=== PATIENT | male | born 2000 | race Caucasian/White ===

== ENCOUNTER 2022-10-08 15:00 | Emergency (ER) | payer BC, OTHER ==
--- NOTE | 2022-10-08 15:17 | ED ---
General Adult HPI <Mukund Harrell - Last Filed: 10/09/22 07:21> - General Source: patient, family Mode of arrival: ambulatory Limitations: no limitations - History of Present Illness MD Complaint: 4 -: days(s) <Antonella Morley - Last Filed: 10/11/22 10:13> - General Chief complaint: Neuro Symptoms/Deficit Stated complaint: Left leg numbness Time Seen by Provider: 10/08/22 17:00 - History of Present Illness Initial comments: Dictation was produced using [employer] dictation software. please excuse any grammatical, word or spelling errors. Medical screening exam: 21-year-old male presents emergency department for 4 day s of left lower extremity numbness. States is completely numb from his knee distally. Patient went and saw another medical provider just prior to here told him that he was having some hyperreflexia that he should come to the emergency department. Patient's well-appearing at the bedside. He does have a palpable dorsalis pedis and left posterior tibialis pulse. (Mukund Harrell) When I went to evaluate the patient, he provided the same information as above. He did additionally note that prior to the numbness below his knee, he had pain and numbness in the left thigh that has since resolved. He also notes some tingling in the toes on his right foot. (Antonella Morley) - Related Data Allergies Allergy/AdvReac Type Severity Reaction Status Date / Time Penicillins Allergy Rash/Hives Verified 10/08/22 15:21 Review of Systems ROS Other: All systems not noted in ROS Statement are negative. <Mukund Harrell - Last Filed: 10/09/22 07:21> ROS Other: All systems not noted in ROS Statement are negative. <Antonella Morley - Last Filed: 10/11/22 10:13> ROS Statement: Those systems with pertinent positive or pertinent negative responses have been documented in the HPI. General Exam General appearance: alert, in no apparent distress Head exam: Present: atraumatic, normocephalic, normal inspection Respiratory exam: Present: normal lung sounds bilaterally. Absent: respiratory distress, wheezes, rales, rhonchi, stridor Cardiovascular Exam: Present: regular rate, normal rhythm, normal heart sounds. Absent: systolic murmur, diastolic murmur, rubs, gallop, clicks Extremities exam: Present: other (2+ dorsalis pedis and tibialis posterior pulses bilaterally. Capillary refill less than 1 second bilaterally.) Neurological exam: Present: alert, oriented X3, CN II-XII intact, normal gait Expanded Sensory exam: Lower Extremity Light Touch: Abnormal Left, Lower Extremity Pin Prick: Normal, Lower Extremity Temperature: Abnormal Left (The left foot does feel colder on palpation than the right foot.) Motor strength exam: RLE: 5, LLE: 5 Psychiatric exam: Present: normal affect, normal mood Skin exam: Present: warm, dry, intact, normal color. Absent: rash <Antonella Morley - Last Filed: 10/11/22 10:13> Course Vital Signs 10/08/22 10/08/22 15:18 18:36 Temperature 97 F L 97.1 F L Pulse Rate 90 92 Respiratory 16 18 Rate Blood Pressure 132/89 142/84 O2 Sat by Pulse 99 96 Oximetry Medical Decision Making - Lab Data Result diagrams: 10/08/22 17:18 10/08/22 17:18 <Mukund Harrell - Last Filed: 10/09/22 07:21> - Lab Data Result diagrams: 10/08/22 17:18 10/08/22 17:18 <Antonella Morley - Last Filed: 10/11/22 10:13> - Medical Decision Making This is a 21-year-old male who presents emergency department for left leg numbness. Was pt. sent in by a medical professional or institution? @ -No Did you speak to anyone other than the patient for history? @ -His mother Did you review nursing and triage notes? @ -Agree, accurate with regards to the patient's symptoms. Were old charts reviewed? @ -No Differential Diagnosis? @ -Arterial occlusion, DVT, brain lesion, sciatica, diabetes mellitus, vitamin B12 deficiency, this is not meant to be an all inclusive list. What testing was considered but not performed? (CT, X-rays, U/S, labs)? Why? @ -We had intended to do an ultrasound of the left lower extremity and possibly a CTA of the left lower extremity, however the patient ended up leaving AMA before the tests could be performed. Did you discuss the management of the patient with other professionals? @ -No Did you reconcile home meds? @ -No Was smoking cessation discussed for >3mins.? @ -No Was critical care preformed (if so, how long)? @ -No Were there social determinants of health that impacted care today? How? (Homelessness, low income, unemployed, alcoholism, drug addiction, transportation, low edu. Level, literacy, decrease access to med. care, snf, rehab)? @ -No Was there de-escalation of care discussed even if they declined? (Discuss DNR or withdrawal of care, Hospice)? @ -No What co-morbidities impacted this encounter? (DM, HTN, Smoking, COPD, CAD, Cancer, CVA, Hep., AIDS, mental health diagnosis, sleep apnea, morbid obesity)? @ -None Was patient admitted / discharged? @ -Patient left AMA. He had equal pulses and capillary refill bilaterally, however there did appear to be some temperature differences, with the left lower extremity feeling colder than the right. He did have intact sensations to pinprick on the left, however sensations were not intact to light touch on the left. Lab work obtained and found to be nonactionable. No imaging tests could be performed before the patient left AMA. Drug Therapy requiring intensive monitoring for toxicity (Heparin, Nitro, Insulin, Cardizem)? @ -None Were any procedures done? @ -None Diagnosis/symptom? @ -Left lower extremity paresthesia Acute, or Chronic, or Acute on Chronic? @ -Acute Uncomplicated (without systemic symptoms) or Complicated (systemic symptoms)? @ -Uncomplicated Side effects of treatment? @ -None Exacerbation, Progression, or Severe Exacerbation] @ -Not applicable Poses a threat to life or bodily function? @ -This will depend on the severity and cause of his symptoms. (Antonella Morley) - Lab Data Lab Results 10/08/22 10/08/22 Range/Units 17:18 17:18 WBC 9.5 (4.0-11.0) k/uL RBC 4.93 (4.30-5.90) m/uL Hgb 15.2 (13.0-17.5) gm/dL Hct 43.0 (39.0-53.0) % MCV 87.3 (80.0-100.0) fL MCH 30.9 (25.0-35.0) pg MCHC 35.4 (31.0-37.0) g/dL RDW 12.0 (11.5-15.5) % Plt Count 268 (150-450) k/uL MPV 7.4 Neutrophils % 66 % Lymphocytes % 26 % Monocytes % 5 % Eosinophils % 1 % Basophils % 1 % Neutrophils # 6.2 (1.3-7.7) k/uL Lymphocytes # 2.5 (1.0-4.8) k/uL Monocytes # 0.5 (0-1.0) k/uL Eosinophils # 0.1 (0-0.7) k/uL Basophils # 0.1 (0-0.2) k/uL Sodium 139 (137-145) mmol/L Potassium 4.2 (3.5-5.1) mmol/L Chloride 105 (98-107) mmol/L Carbon Dioxide 25 (22-30) mmol/L Anion Gap 9 mmol/L BUN 11 (9-20) mg/dL Creatinine 0.79 (0.66-1.25) mg/dL Est GFR (CKD-EPI)AfAm >90 (>60 ml/min/1.73 sqM) Est GFR (CKD-EPI)NonAf >90 (>60 ml/min/1.73 sqM) Glucose 90 (74-99) mg/dL Calcium 10.0 (8.4-10.2) mg/dL Magnesium 2.1 (1.6-2.3) mg/dL Total Bilirubin 0.8 (0.2-1.3) mg/dL AST 22 (17-59) U/L ALT 19 (4-49) U/L Alkaline Phosphatase 69 (38-126) U/L Total Protein 7.9 (6.3-8.2) g/dL Albumin 5.1 H (3.5-5.0) g/dL Disposition <Mukund Harrell - Last Filed: 10/09/22 07:21> <Antonella Morley - Last Filed: 10/11/22 10:13> Clinical Impression: Paresthesia of left lower extremity Disposition: Left Against Medical Advice Referrals: Feliciano Cabrales DO [Primary Care Provider] - 1-2 days
[2022-10-08 17:50] LABS: Basophils # (A) 0.1 k/uL (0-0.2); Basophils % (A) 1 %; Eosinophils # (A) 0.1 k/uL (0-0.7); Eosinophils % (A) 1 %; HGB 15.2 gm/dL (13.0-17.5); Lymphocytes # (A) 2.5 k/uL (1.0-4.8); Lymphocytes % (A) 26 %; MCH 30.9 pg (25.0-35.0); MCHC 35.4 g/dL (31.0-37.0); MCV 87.3 fL (80.0-100.0); Mean Platelet Volume 7.4; Monocytes # (A) 0.5 k/uL (0-1.0); Monocytes % (A) 5 %; Neutrophils # (A) 6.2 k/uL (1.3-7.7); Neutrophils % (A) 66 %; Platelet Count 268 k/uL (150-450); RBC 4.93 m/uL (4.30-5.90); WBC 9.5 k/uL (4.0-11.0)
[2022-10-08 18:05] LABS: ALT 19 U/L (4-49); AST 22 U/L (17-59); African American GFR (CKD) >90 (>60 ml/min/1.73 sqM); Albumin 5.1 g/dL (3.5-5.0); Alkaline Phosphatase 69 U/L (38-126); Anion Gap 9 mmol/L; Blood Urea Nitrogen 11 mg/dL (9-20); Carbon Dioxide 25 mmol/L (22-30); Chloride 105 mmol/L (98-107); Glucose 90 mg/dL (74-99); Magnesium 2.1 mg/dL (1.6-2.3); Non-African American GFR(CKD) >90 (>60 ml/min/1.73 sqM); Potassium 4.2 mmol/L (3.5-5.1); Sodium 139 mmol/L (137-145); Total Bilirubin 0.8 mg/dL (0.2-1.3); Total Protein 7.9 g/dL (6.3-8.2)
[2022-10-08 18:39] VITALS: BP 142/84; PULSE 92; RESP 18; TEMP 97.1
== END 2022-10-08 18:39 | disposition left against medical advice (07) ==
LOC: EC 15:00
DX: R20.2 Paresthesia of skin (principal); Z88.0 Allergy status to penicillin; Z53.29 Procedure and treatment not carried out because of patient's decision for other reasons
CPT/HCPCS: 36415; 80053; 83735; 85025; 99284